=== PATIENT | male | born 1980 | race American Indian/Alaskan Native ===

== ENCOUNTER → 2017-08-18 20:55 | Emergency (ER) | payer SELFPAY | END | disposition left against medical advice (07) | LOC: ED 20:55 | DX: R42 Dizziness and giddiness (principal); Z53.21 Procedure and treatment not carried out due to patient leaving prior to being seen by health care provider ==

== ENCOUNTER 2019-02-12 22:38 | Emergency (ER) | payer SELFPAY ==
[2019-02-13] MEDS ORDERED: KETOROLAC 30 MG/1 ML INJ ONE (00:29)
[2019-02-13] MEDS ORDERED: SODIUM CHLORIDE 0.9% 1000 ML 1,000 ML IV ONE (00:29)
[2019-02-13] MEDS ORDERED: KETOROLAC 30 MG/1 ML INJ IV ONE (00:30)
--- NOTE | 2019-02-13 00:35 | XRay Report ---
Left shoulder, 3 views INDICATION: Pain following injury FINDINGS: There is an anteroinferior dislocation of the left shoulder. No definite fracture. Signer Name: Mario Fernandez MD Signed: 02/13/2019 12:31 AM Workstation Name: [id number]
[2019-02-13] MEDS ORDERED: KETAMINE 500 MG/5 ML VIAL MDV IV ONE ×2 (01:01→01:33)
[2019-02-13] MEDS ORDERED: KETAMINE 500 MG/5 ML VIAL MDV ONE (01:02)
[2019-02-13] MEDS ORDERED: ONDANSETRON 4 MG/2 ML INJ IV ONE (01:03)
--- NOTE | 2019-02-13 01:40 | Emergency Department Report ---
ED Extremity Problem HPI - General Chief complaint: Extremity Injury, Upper Stated complaint: LT SHOULDER PAIN Time Seen by Provider: 02/13/19 00:28 Source: patient Mode of arrival: Ambulatory Limitations: No Limitations - History of Present Illness Severity scale (0 -10): 10 - Related Data Previous Rx's Medication Instructions Recorded Last Taken Type Ibuprofen [Motrin] 800 mg PO Q8H PRN #20 tablet 07/23/14 Unknown Rx Allergies Allergy/AdvReac Type Severity Reaction Status Date / Time No Known Allergies Allergy Verified 07/23/14 22:02 ED Review of Systems ROS: Stated complaint: LT SHOULDER PAIN Other details as noted in HPI ED Past Medical Hx - Past Medical History Previous Medical History?: Yes Additional medical history: Left shoulder dislocation - Surgical History Past Surgical History?: Yes Hx Appendectomy: Yes - Social History Smoking Status: Current Every Day Smoker Substance Use Type: Alcohol, Marijuana - Medications Home Medications: Home Medications Medication Instructions Recorded Confirmed Last Taken Type Ibuprofen [Motrin] 800 mg PO Q8H PRN #20 tablet 07/23/14 Unknown Rx ED Physical Exam - General Limitations: No Limitations ED Course Vital Signs 02/12/19 22:43 Temperature 98.1 F Pulse Rate 94 H Respiratory 20 Rate Blood Pressure 140/94 O2 Sat by Pulse 98 Oximetry Critical care attestation.: If time is entered above; I have spent that time in minutes in the direct care of this critically ill patient, excluding procedure time. ED Disposition Condition: Stable Referrals: COSME PEREIRA MD [Primary Care Provider] - 3-5 Days
--- NOTE | 2019-02-13 01:59 | XRay Report ---
Left shoulder, single view INDICATION: Dislocation, postreduction FINDINGS: Single view submitted shows successful reduction of the shoulder dislocation with the humer al head now within the glenoid fossa. No definite fracture is seen. Signer Name: Mario Fernandez MD Signed: 02/13/2019 1:55 AM Workstation Name: [id number]
--- NOTE | 2019-02-13 02:19 | Emergency Department Report ---
ED Extremity Problem HPI - General Chief complaint: Extremity Injury, Upper Stated complaint: LT SHOULDER PAIN Time Seen by Provider: 02/13/19 00:28 Source: patient Mode of arrival: Ambulatory Limitations: No Limitations - History of Present Illness Initial comments: Patient reports ground level fall on the stairs on his left shoulder. Reports hx of left shoulder dislocations x5. Reports his left shoulder was unable to move after the fall and felt similar to past dislocations. Reports alcohol tonight. Denies symptoms prior to tripping on the stairs. Denies head trauma or LOC. MD Complaint: joint paint Severity scale (0 -10): 10 - Related Data Previous Rx's Medication Instructions Recorded Last Taken Type Ibuprofen [Motrin] 800 mg PO Q8H PRN #20 tablet 07/23/14 Unknown Rx Ibuprofen [Motrin 600 MG tab] 600 mg PO Q6H PRN #26 tablet 02/13/19 Unknown Rx methOCARBAMOL [Robaxin TAB] 750 mg PO Q8H PRN #12 tablet 02/13/19 Unknown Rx Allergies Allergy/AdvReac Type Severity Reaction Status Date / Time No Known Allergies Allergy Verified 07/23/14 22:02 ED Review of Systems ROS: Stated complaint: LT SHOULDER PAIN Other details as noted in HPI Other: GENERAL: No weight change, fatigue, fever, chills, or night sweats SKIN: No changes in skin or hair, no itching, no rashes, no jaundice HEAD: No trauma EYES: No blurriness, tearing, itching, acute visual loss, conjunctival discoloration, or scleral icterus EARS: No hearing loss, tinnitus, vertigo, or earache NOSE: No rhinorrhea, stuffiness, sneezing, itching, or epistaxis MOUTH: No bleeding gums, hoarseness, sore throat, or swelling CARDIAC: No new murmur, chest pain, palpitations, dyspnea on exertion, orthopnea, PND, or edema RESPIRATORY: No shortness of breath, wheeze, cough, sputum production, hemoptysis GI: No abdominal pain, nausea, vomiting, dysphagia, diarrhea, constipation, hematemesis, melena, hematochezia URINARY: No frequency, urgency, polyuria, dysuria, hematuria, or incontinence MUSCULOSKELETAL: Left shoulder pain. No muscle weakness, joint stiffness, redness, swelling NEUROLOGIC: No headache, syncope, loss of sensation, numbness, tingling, tremors, weakness, paralysis, seizures HEMATOLOGIC: No anemia, easy bruising, bleeding, petechiae, or purpura ENDOCRINE: No hot or cold intolerance, sweating, polyuria, polydipsia or, polyphagia no thyroid problems PSYCHIATRIC: No change in mood, no anxiety, no depression ED Past Medical Hx - Past Medical History Previous Medical History?: Yes Additional medical history: Left shoulder dislocation - Surgical History Past Surgical History?: Yes Hx Appendectomy: Yes - Social History Smoking Status: Current Every Day Smoker Substance Use Type: Alcohol, Marijuana - Medications Home Medications: Home Medications Medication Instructions Recorded Confirmed Last Taken Type Ibuprofen [Motrin] 800 mg PO Q8H PRN #20 tablet 07/23/14 Unknown Rx Ibuprofen [Motrin 600 MG tab] 600 mg PO Q6H PRN #26 tablet 02/13/19 Unknown Rx methOCARBAMOL [Robaxin TAB] 750 mg PO Q8H PRN #12 tablet 02/13/19 Unknown Rx ED Physical Exam - General Limitations: No Limitations - Other Other exam information: GENERAL: Patient in no acute distress HEAD: Normocephalic, atraumatic EYES: PERRLA, EOM intact, no scleral icterus, no conjunctival hemorrhage, visual green and acuity wnl NOSE: No tenderness, discharge, sinus tenderness MOUTH: No erythema, bleeding, exudate HEART: Regular rate and rhythm, no murmur, S1-S2 are auscultated, no edema, pulses are symmetric LUNGS: No respiratory distress. Bilateral breath sounds, No tachypnea, No retractions, No wheezing, rales, rhonchi ABDOMEN: Normal bowel sounds, abdomen soft, no tenderness, no rebound, no guarding, no distention, no masses, no CVA tenderness MUSCULOSKELETAL: Left shoulder deformity, pain with ROM left shoulder NEUROLOGIC: GCS 15, Alert and Oriented x3, Cranial nerves intact, normal sensation, normal strength, no cerebellar deficit, NIHSS 0 SKIN: Skin is warm and dry, no wounds, no rashes ED Course Vital Signs 02/12/19 02/13/19 22:43 00:29 Temperature 98.1 F Pulse Rate 94 H Respiratory 20 20 Rate Blood Pressure 140/94 O2 Sat by Pulse 98 99 Oximetry - Moderate Sedation Indications: fracture/dislocation redu ASA Class: I Mallampati Airway Score: 1 Preparation: engine monitor applied, pulse oximeter, capnometry used, supplemental O2 applied, suction/airway equipment at bedside, IV secured Ketamine: IV Ketamine Dose: 75 Complications: none Patient Tolerated Procedure: well, no complications - Orthopedic Joint Reduction Joint #1 Consent Obtained: written consent Time Out Performed: Yes Side: left Joint Reduction Location: shoulder Analgesia: moderate sedation Shoulder Technique Used (if applicable): traction/counter-traction Post-Reduction Neuro Exam: intact Post-Reduction Vascular Exam: intact Post Reduction X-Ray Obtained: Yes Post Reduction X-Ray Results: reduced Splint Applied: Yes Patient Tolerated Procedure: well ED Medical Decision Making - Radiology Data Radiology results: report reviewed - Medical Decision Making Patient comfortable. Reports symptom improvement. Updated with results. Patient clinically sober with a ride in the ER who reports will get the patient home safely. Patient ambulating in the ER without difficulty. Plan discharge with outpatient follow up. Return if any worsening. Critical Care Time: Yes Critical care time in (mins) excluding proc time.: 35 Critical care attestation.: If time is entered above; I have spent that time in minutes in the direct care of this critically ill patient, excluding procedure time. 35 ED Disposition Clinical Impression: Dislocation of left shoulder joint Qualifiers: Encounter type: initial encounter Qualified Code(s): S43.005A - Unspecified dislocation of left shoulder joint, initial encounter Fall Qualifiers: Encounter type: initial encounter Qualified Code(s): W19.XXXA - Unspecified fall, initial encounter Disposition: DC- TO HOME OR SELFCARE Is pt being admited?: No Condition: Stable Instructions: Shoulder Dislocation (ED), Moderate Sedation (ED) Prescriptions: Ibuprofen [Motrin 600 MG tab] 600 mg PO Q6H PRN #26 tablet PRN Reason: Pain methOCARBAMOL [Robaxin TAB] 750 mg PO Q8H PRN #12 tablet PRN Reason: Spasm Referrals: [facility] MD ELLIOT [Primary Care Provider] - 2-3 Days BIJU NICOLE MD [Staff Physician] - 2-3 Days PRINCESS MUNROE MD [Staff Physician] - 2-3 Days Forms: Work/School Release Form(ED) Time of Disposition: 02:31
[2019-02-13 03:04] VITALS: BP 143/92
== END 2019-02-13 02:20 | disposition home or self-care (01) ==
LOC: ED 22:38
DX: S43.005A Unspecified dislocation of left shoulder joint, initial encounter (principal); F10.10 Alcohol abuse, uncomplicated; F17.200 Nicotine dependence, unspecified, uncomplicated; F12.10 Cannabis abuse, uncomplicated; Z79.899 Other long term (current) drug therapy; W10.8XXA Fall (on) (from) other stairs and steps, initial encounter; Y93.89 Activity, other specified; Y92.89 Other specified places as the place of occurrence of the external cause; Y99.8 Other external cause status
CPT/HCPCS: 23650; 73020; 73030; 96374; 96375; 99284; J1885; J2405; J7030

== ENCOUNTER 2020-02-25 16:21 | Emergency (ER) | payer SELFPAY | END 2020-02-26 07:00 | disposition left against medical advice (07) | LOC: ED 16:21 | DX: M79.602 Pain in left arm (principal); Z53.21 Procedure and treatment not carried out due to patient leaving prior to being seen by health care provider ==